=== PATIENT | male | born 1990 | race Hispanic/Latino ===

== ENCOUNTER 2024-11-27 03:02 | Emergency (ER) | payer BC ==
[~2024-11-27] VITALS: Ht 162.6 cm; Wt 102.1 kg
--- NOTE | 2024-11-27 03:14 | ERN ---
ED Note History of Present Illness Stated Complaint: Patient comes in with very nonspecific symptoms. That has said he has been going on for a week. He said he had phlegm. And then but then it went away. He also said he had a headache and then it went away. Said he had rib pain but he said that has that has for years also stated that he had gassiness that has abdomen with this had went away Chief Complaint: Multiple Complaints Time Seen by MD: 03:04 Allergies: Coded Allergies: No Known Allergies (Unverified Allergy, Unknown, 11/27/24) Past Medical History Past Medical History: No Pertinent History Surgical History: None Review of System Dictation Constitutional: Negative for fever,chills, and weight loss Eyes: Negative for injury, pain,redness, and discharge ENT: Negative for injury,pain or swelling Cardiovascular: Negative for chest pain, palpitations, and edema Respiratory: Negative for shortness of breath, cough, and wheezing, Abdomen/GI: Negative for abdominal pain, nausea, vomiting, diarrhea, and constipation Back: Negative for injury and pain : Negative for injury, bleeding and discharge MS/Extremity: Negative for injury and deformity Skin: Negative for rash, and discoloration Neuro: Negative for headache, weakness, numbness, tingling, and seizure Psych: Negative for suicide ideation, homicidal ideation, and hallucinations Initial Vital Sign VS Vital Signs Date Time Temp Pulse Resp B/P (MAP) Pulse Ox O2 Delivery O2 Flow Rate FiO2 11/27/24 03:05 98.8 117 20 129/94 98 Room Air 11/27/24 03:51 0 21 Physical Exam Dictation General: awake, alert, NAD Head/Face: Normocephalic, atraumatic Eyes: PERRL, EOMI, vision at baseline ENT: oral cavity clear, TMs clear, no signs of infection Neck: Trachea midline, supple, no nuchal rigidity Cardiovascular: RRR, normal S1/S2, No MRGs, no JVD Respiratory: CTAB, no respiratory distress, No rales or wheezes Abdomen: Soft, non-tender, non-distended, normal bowel sounds, no guarding or rebound. Skin: Warm, dry, normal turgor, no rash MS/Extremity: Pulses equal, no cyanosis, neurovascular intact, FROM Neuro: COAx4, GCS 15, strength 5/5, CN 2-12 intact, normal cerebellar exam, normal gait, Psych: Normal behavior, mood, and affect normal Results (Laboratory/Radiology) Laboratory/Radiology Laboratory Tests Test 11/27/24 03:20 White Blood Count 9.9 K/uL (4.8-10.8) Red Blood Count 5.72 MIL/uL (4.50-6.20) Hemoglobin 17.2 g/dL (14.0-18.0) Hematocrit 49.0 % (42-54) Mean Corpuscular Volume 85.7 fL (79-99) Mean Corpuscular Hemoglobin 30.1 pg (27.0-33.0) Mean Corpuscular Hemoglobin Concent 35.1 g/dL (32.0-36.0) Red Cell Distribution Width 13.4 % (11.0-15.5) Platelet Count 319 K/uL (130-400) Mean Platelet Volume 9.6 fL (7.5-10.5) Immature Granulocyte % (Auto) 0.5 % (0-1) Neutrophils (%) (Auto) 61.9 % (40.0-77.0) Lymphocytes (%) (Auto) 22.7 % (21.0-51.0) Monocytes (%) (Auto) 14.2 % (3.0-13.0) H Eosinophils (%) (Auto) 0.2 % (0.0-8.0) Basophils (%) (Auto) 0.5 % (0.0-5.0) Neutrophils # (Auto) 6.1 K/uL (1.8-7.7) Lymphocytes # (Auto) 2.3 K/uL (1.0-4.8) Monocytes # (Auto) 1.4 K/uL (0.1-1.0) H Eosinophils # (Auto) 0.02 K/uL (0.00-0.70) Basophils # (Auto) 0.05 K/uL (0.00-0.20) Absolute Immature Granulocyte (auto 0.05 K/uL (0-1) Nucleated Red Blood Cells 0.0 % (0.0-0.19) Sodium Level 135 mmol/L (136-145) L Potassium Level 4.3 mmol/L (3.5-5.1) Chloride Level 98 mmol/L (101-111) L Carbon Dioxide Level 33 mmol/L (21-32) H Blood Urea Nitrogen 15 mg/dL (7-18) Creatinine 1.4 mg/dL (0.5-1.3) H Glomerular Filtration Rate Calc 66 mL/min (>90) Random Glucose 110 mg/dL (70-105) H Total Calcium 9.2 mg/dL (8.5-10.1) Troponin I High Sensitivity 11 ng/L (4-75) ED Course ED Course Orders Procedure Category Date Status Time Cbc With Differential LAB 11/27/24 Complete 03:09 Chest 1vw RAD 11/27/24 Resulted 03:09 12 Lead Ekg Tracing- EKG 11/27/24 Resulted Technical 03:09 Lactated Ringers PHA 11/27/24 Complete 1000ml (Lactated 03:30 Morphine 4mg Syg PHA 11/27/24 Complete (Morphine 4mg Syg) 03:30 Ondansetron 4mg Inj PHA 11/27/24 Complete (Zofran 4mg Inj) 03:30 Troponin I High LAB 11/27/24 Complete Sensitivity 03:09 Basic Metabolic Panel LAB 11/27/24 Complete 03:09 Current Medications Medications (Trade) Dose Ordered Sig/Lachelle Route PRN Reason Start Time Stop Time Status Last Admin Dose Admin Lactated Ringer's 1,000 ml @ 0 mls/hr ONCE ONCE IV 11/27/24 03:30 11/27/24 03:31 DC 11/27/24 03:45 Morphine Sulfate (morPHINE 4MG SYG) 4 mg ONCE ONCE IVP 11/27/24 03:30 11/27/24 03:31 DC Ondansetron HCl (zoFRAN 4MG INJ) 4 mg ONCE ONCE IVP 11/27/24 03:30 11/27/24 03:31 DC 11/27/24 03:44 Vital Signs Date Time Temp Pulse Resp B/P (MAP) Pulse Ox O2 Delivery O2 Flow Rate FiO2 11/27/24 04:39 98.4 90 18 116/72 98 Room Air* 0 11/27/24 03:51 98.8 107 20 112/78 98 Room Air* 0 11/27/24 03:05 98.8 117 20 129/94 98 Room Air Medical Decision Making MDM MDM: Differential diagnosis: Rationale: Tests considered and ordered secondary to shared decision making include: Previous outside records reviewed: Old ER visits. Risk of complication and/or morbidity or mortality of patient management: None Medications-Per medication reconciliation Need for hospitalization: Patient does not meet criteria for hospitalization. Need for emergency major/minor surgery: No There are no social concerns with this patient. Prescription drug management Prescriptions will include symptomatic care Patient's prior external medical records from other ER visits were reviewed by me as indicated. Prior testing and results from previous visits were reviewed. Prior tests were taken into account with medical decision making and resource utilization, independent historian/historians were used to obtain complete medical history. I independently interpreted the test that were performed, results were reviewed by me and considered findings on radiology if ordered. Medical management and examination interpretation discussions were had by me with other qualified healthcare professionals as indicated for the patient's care. DX & DISP Disposition: Discharge Departure Impression: Primary Impression: Condition not found Condition: Stable Referrals: SELF,REFERRAL (PCP) NATALIYA VICK MD Nov 27, 2024 03:14
[2024-11-27 03:29] LABS: IMMATURE GRANULOCYTE ABSOLUTE 0.05 K/uL (0-1); NUCLEATED RED BLOOD CELLS 0.0 % (0.0-0.19); PLATELET COUNT (AUTO) 319 K/uL (130-400); RED BLOOD CELL COUNT(AUTO) 5.72 MIL/uL (4.50-6.20); RED CELL DISTRIBUTION WIDTH 13.4 % (11.0-15.5); WHITE BLOOD COUNT (AUTO) 9.9 K/uL (4.8-10.8)
[2024-11-27 03:37] LABS: CREATININE 1.4 mg/dL (0.5-1.3); GLOMERULAR FILTR. RATE CALC 66.0 mL/min (>90); GLUCOSE,RANDOM 110.0 mg/dL (70-105); SODIUM SERUM 135.0 mmol/L (136-145); UREA NITROGEN, BLOOD 15.0 mg/dL (7-18)
[2024-11-27] MEDS: LACTATED RINGERS 1000ML 1,000 ML IV ONE (03:45)
[2024-11-27 04:39] VITALS: BP 116/72; PULSE 90; RESP 18; TEMP 98.5; O2SAT 98
--- NOTE | 2024-11-27 04:56 | HMCIMG ---
EXAM: CR Chest, 1 view CLINICAL HISTORY: To evaluate chest. COMPARISON: None provided. FINDINGS: The lungs show no infiltrates or other acute findings. No pleural effusion or pneumothorax. The cardiomediastinal silhouette is within normal limits. No acute osseous abnormality. IMPRESSION: No acute cardiopulmonary process is evident. /[place]
--- NOTE | 2024-11-27 07:13 | EKG ---
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
== END 2024-11-27 04:40 | disposition home or self-care (01) ==
LOC: EDH 03:02 → EDBD 03:02 → EDH 04:40
DX: R14.0 Abdominal distension (gaseous) (principal); R07.81 Pleurodynia
CPT/HCPCS: 99284; 96374; 71045; 96361; 84484; 80048; 85025; 36415; 93005; J7120; J2405; J2270

== ENCOUNTER 2025-02-24 07:33 | Emergency (ER) | payer BC ==
[~2025-02-24] VITALS: Ht 162.6 cm; Wt 94.9 kg
[2025-02-24 07:35] VITALS: BP 137/87; PULSE 104; RESP 18; TEMP 98.1
--- NOTE | 2025-02-24 07:48 | ERN ---
General Chief Complaint: Constipation Stated Complaint: COSTIPATION Time Seen by MD: 07:40 Source: patient History of Present Illness Timing/Duration: 1 week Modifying Factors: improves with other Allergies: Coded Allergies: No Known Allergies (Unverified Allergy, Unknown, 11/27/24) Home Meds Active Scripts Docusate Sodium (Colace) 100 Mg Capsule, 1 CAP PO BID for 10 Days, #20 CAP 0 Refills Prov:MICHELLE FALK MD 02/24/25 Sulfamethoxazole/Trimethoprim (Bactrim 400-80 mg Tablet) 400 Mg-80 Mg Tablet, 1 TAB PO BID for 3 Days, #6 TAB 0 Refills Prov:MICHELLE FALK MD 02/24/25 Past Medical History Past Medical History: Constipation Past Surgical History: None Surgical History Other: SKIN GRAFT TO LT LEG Gastrointestinal/Abdominal: (+) constipation Physical Exam General Appearance: (-) no apparent distress, (-) apparent distress, (-) mild distress, (-) moderate distress, (-) severe distress, (-) thin, (-) obese, (-) combative, (-) cachetic, (-) anxious, (-) other documentation Orientation: (-) alert, (-) oriented x 3, (-) disoriented, (-) other documentation Ear, Nose, Throat: (-) hearing grossly normal, (-) normal ENT inspection, (-) moist mucous membraine, (-) normal pharynx, (-) normal TM, (-) abnormal TM, (-) pharyngeal erythema, (-) sinus drainange, (-) sinus pain, (-) tonsillar exudate, (-) tonsillar swelling, (-) nasal drip, (-) nasal congestion, (-) hearing decreased, (-) dry mucous membraine, (-) other documentation Respiratory: (-) chest non-tender, (-) lungs clear, (-) well ventilated, (-) decreased breath sounds, (-) retractions, (-) abnormal breath sound, (-) crack les, (-) plerual rub, (-) rales, (-) rhonchi, (-) stridor, (-) wheezing, (-) other documentation Heart: (-) regular, (-) no gallop, (-) murmur, (-) irregular, (-) bradycardia, (-) tachycardia, (-) systolic murmur, (-) diastolic murmur, (-) extra beats, (-) friction rub, (-) gallop/S3, (-) gallop/S4, (-) other documentation Vascular: (-) no edema, (-) normal peripheral pulse, (-) no JVD, (-) abdominal aorta, (-) abnormal peripheral pulse, (-) carotid bruit, (-) edema, (-) JVD, (-) varicose vein, (-) other documentation Gastrointestinal: (-) soft, (-) non-tender, (-) no organomegaly, (-) bowel sound present, (-) distended, (-) tender, (-) abnormal bowel sounds, (-) bowel sound absent, (-) rebound, (-) spann's sign, (-) guarding, (-) hernia, (-) mass, (-) pulsatile mass, (-) CVA tenderness, (-) hepatomegaly, (-) spleenom egaly, (-) other documentation, (-) McBerney's, (-) other documentation Extremities: (-) normal range of motion, (-) non-tender, (-) normal inspection, (-) no pedal edema, (-) no calf tenderness, (-) normal capillary refill, (-) pelvis stable, (-) calf tenderness, (-) inflammation, (-) pedal edema, (-) slow capillary refill, (-) swelling, (-) other Neurologic/Psychiatric: (-) normal speech, (-) no motor defecits, (-) no sensory deficits, (-) swatch maker II-XII nml as tested, (-) normal gait, (-) normal mood/affect, (-) abnormal cerebellar tests, (-) abnormal gait, (-) aphasia, (-) facial droop, (-) other documentation Results Laboratory and Microbiology Lab and Micro Result Laboratory Tests Test 02/24/25 08:11 White Blood Count 11.5 K/uL (4.8-10.8) H Red Blood Count 5.16 MIL/uL (4.50-6.20) Hemoglobin 15.4 g/dL (14.0-18.0) Hematocrit 45.6 % (42-54) Mean Corpuscular Volume 88.4 fL (79-99) Mean Corpuscular Hemoglobin 29.8 pg (27.0-33.0) Mean Corpuscular Hemoglobin Concent 33.8 g/dL (32.0-36.0) Red Cell Distribution Width 13.4 % (11.0-15.5) Platelet Count 362 K/uL (130-400) Mean Platelet Volume 9.2 fL (7.5-10.5) Nucleated Red Blood Cells 0.0 % (0.0-0.19) Sodium Level 141 mmol/L (136-145) Potassium Level 4.0 mmol/L (3.5-5.1) Chloride Level 103 mmol/L (101-111) Carbon Dioxide Level 31 mmol/L (21-32) Blood Urea Nitrogen 18 mg/dL (7-18) Creatinine 1.1 mg/dL (0.5-1.3) Glomerular Filtration Rate Calc 89 mL/min (>90) Random Glucose 94 mg/dL (70-105) Total Calcium 9.1 mg/dL (8.5-10.1) Total Bilirubin 0.4 mg/dL (0.2-1.0) Direct Bilirubin 0.1 mg/dL (0.0-0.3) Aspartate Amino Transf (AST/SGOT) 25 U/L (10-37) Alanine Aminotransferase (ALT/SGPT) 47 U/L (12-78) Alkaline Phosphatase 76 U/L (50-136) Total Protein 6.6 g/dL (6.0-8.3) Albumin 3.4 g/dL (3.5-5.0) L MDM MDM: Differential diagnosis: Constipation Rationale: Tests considered and ordered secondary to shared decision making include: Previous outside records reviewed: Old ER visits. Risk of complication and/or morbidity or mortality of patient management: None Medications-Per medication reconciliation Need for hospitalization: Patient does not meet criteria for hospitalization. Need for emergency major/minor surgery: No ED Course Orders Procedure Category Date Status Time Cbc Without LAB 02/24/25 Complete Differential 07:43 Basic Metabolic Panel LAB 02/24/25 Complete 07:43 Hepatic Function Panel LAB 02/24/25 Complete 07:43 Ct Abdomen/Pelvis W/O CT 02/24/25 Resulted Contrast 07:43 Bladder Scan CPOE 02/24/25 Transmitted 07:43 Vital Signs Date Time Temp Pulse Resp B/P (MAP) Pulse Ox O2 Delivery O2 Flow Rate FiO2 02/24/25 07:35 98.1 104 18 137/87 99 Room Air 0 DX & DISP Disposition: Discharge Departure Impression: Primary Impression: Constipation Condition: Stable Scripts Docusate Sodium (Colace) 100 Mg Capsule 1 CAP PO BID for 10 Days, #20 CAP 0 Refills Prov: MICHELLE FALK MD 02/24/25 Sulfamethoxazole/Trimethoprim (Bactrim 400-80 mg Tablet) 400 Mg-80 Mg Tablet 1 TAB PO BID for 3 Days, #6 TAB 0 Refills Prov: MICHELLE FALK MD 02/24/25 Additional Instructions: *Follow up with your primary care physician in 2 - 3 days after discharge. *Continue all medications as prescribed. Do not discontinue or change dosages without consulting your PCP. *Gradually resume normal activities as tolerated. *Continue a balanced diet . Reduce salt intake to help manage BP. *Seek immediate medical attention if you experience chest pain, SOB or severe headache. Referrals: SCOTT MARTIN DO (PCP) MICHELLE FALK MD Feb 24, 2025 07:48 BERRY MELÉNDEZ MD Feb 24, 2025 09:04
--- NOTE | 2025-02-24 08:00 | NUR ---
BLADDER SCAN DONE-83ML IN BLADDER NOTED.
[2025-02-24 08:24] LABS: NUCLEATED RED BLOOD CELLS 0.0 % (0.0-0.19); PLATELET COUNT (AUTO) 362.0 K/uL (130-400); RED BLOOD CELL COUNT(AUTO) 5.16 MIL/uL (4.50-6.20); RED CELL DISTRIBUTION WIDTH 13.4 % (11.0-15.5); WHITE BLOOD COUNT (AUTO) 11.5 K/uL (4.8-10.8)
--- NOTE | 2025-02-24 08:35 | HMCIMG ---
EXAM: CT Abdomen and Pelvis Without IV contrast CLINICAL HISTORY: CONSTIPATION SINCE 4 DAYS TECHNIQUE: Axial computed tomography images of the abdomen and pelvis without intravenous contrast. CONTRAST: No IV contrast. COMPARISON: None provided. FINDINGS: LUNG BASES: The lung bases appear clear. No pleural effusions are seen. LIVER: Unremarkable. GALLBLADDER AND BILE DUCTS: The gallbladder appears within normal limits. No radioopaque gallstones are seen. No biliary ductal dilatation is evident. PANCREAS: Unremarkable. SPLEEN: Unremarkable. ADRENAL GLANDS: Unremarkable. KIDNEYS, URETERS, AND BLADDER: The kidneys appear within normal limits. There is no hydronephrosis or hydroureter. No urinary calculi are seen. STOMACH AND BOWEL: Unremarkable appearance of the stomach and bowel. No evidence of bowel obstruction. No evidence suggesting enteritis or colitis. APPENDIX: No evidence of acute appendicitis on CT examination. PERITONEUM: No free fluid. No free air. LYMPH NODES: No lymphadenopathy is evident. REPRODUCTIVE: Unremarkable as visualized. VASCULATURE: No evidence of abdominal aortic aneurysm. BONES: No aggressive appearing osseous lesion. No acute osseous pathology evident. IMPRESSION: No acute intra-abdominal or pelvic abnormality. /[place]
[2025-02-24 08:44] LABS: ASPARTATE AMINOTRANSFERASE 25.0 U/L (10-37); CREATININE 1.1 mg/dL (0.5-1.3); GLOMERULAR FILTR. RATE CALC 89.0 mL/min (>90); GLUCOSE,RANDOM 94.0 mg/dL (70-105); SODIUM SERUM 141.0 mmol/L (136-145); TOTAL PROTEIN, SERUM 6.6 g/dL (6.0-8.3); UREA NITROGEN, BLOOD 18.0 mg/dL (7-18)
[2025-02-24] MEDS ORDERED: SULF1TAB41 PO (09:02)
[2025-02-24] MEDS ORDERED: DOCU-116 PO (09:02)
--- NOTE | 2025-02-24 10:10 | NUR ---
PT LEFT THE ER BEFORE DISCHARGE INSTRUCTIONS GIVEN
== END 2025-02-24 10:57 | disposition home or self-care (01) ==
LOC: EDH 07:33
DX: K59.00 Constipation, unspecified (principal)
CPT/HCPCS: 36415; 74176; 80048; 80076; 85027; 99284